=== PATIENT | male | born 1940 | race Caucasian/White ===

== ENCOUNTER → 2017-01-29 | Outpatient (CLI) | payer OTHER | LOC: FIMAGING 17:28 | PROVIDERS: ATTEND Physical Medicine & Rehabilitation | DX: S32.010A Wedge compression fracture of first lumbar vertebra, initial encounter for closed fracture (principal) ==

== ENCOUNTER 2017-07-04 09:15 | Emergency (ER) | payer OTHER ==
[2017-07-04 09:23] VITALS: O2SAT 93
--- NOTE | 2017-07-04 09:50 | EDPHY ---
General Narrative: CHIEF COMPLAINT: Cough for 2 weeks HISTORY OF PRESENT ILLNESS: Patient complains of cough of 15 days duration and subsequently and itis.. Gradual onset. Constant duration. Mostly nonproductive. Very rarely productive. No chest pain at any time during this. No shortness of breath. He does feel very tired and fatigued from this. No neck pain or stiffness. No headache. No abdominal pain. No nausea or vomiting. No body aches. Saw his primary care physician 10 days ago. They recommended steam bath and supportive care. No antibiotics ordered. No x-ray ordered. He has been doing over-the- counter cough medicine with minimal improvement. Also complains of laryngitis of similar duration. No pain with this. No difficulty speaking or swallowing. No modifying factors. No recent travel, trauma or surgery. No history of venous thrombolic event No other associated complaints or modifying factors. REVIEW OF SYSTEMS: Ten systems reviewed and are negative unless otherwise noted in the HPI PCP: Dr. Cowart SPECIALISTS: None PAST MEDICAL HISTORY: Insulin-dependent diabetic, hypertension, dyslipidemia PAST SURGICAL HISTORY: None SOCIAL HISTORY: Occasional pipe smoker. No alcohol use. No drug use. Retired FAMILY HISTORY: Noncontributory EXAMINATION General Appearance: Alert, no distress Head: normocephalic, atraumatic Eyes: Pupils equal and round, no conjunctival pallor or injection ENT, Mouth: Mucous membranes moist. Airway patent. Minimal erythema. No asymmetry of the pharynx. Neck: Normal inspection, supple, non-tender Respiratory: Mild rhonchi in the right upper lobe. No wheezing. No crackles. No diminishment. Cardiovascular: Regular rate and rhythm. No murmur Gastrointestinal: Abdomen is soft and nontender Back: non-tender, no bony abnormalities Neurological: A&O, nonfocal, normal gait Skin: Warm and dry, no rash no petechiae or purpura Extremities: Nontender, no pedal edema Psychiatric: Mood and affect normal DIFFERENTIAL DIAGNOSES: Including but not limited to viral bronchitis, bacterial bronchitis, community- acquired pneumonia, pneumonitis, bronchiectasis, upper respiratory infection, influenza MDM: 9:49 a.m. Cough and congestion for 15 days. Possible right-sided upper lobe pneumonia versus bronchitis are suspected. Vital signs were well within normal limits. He is in no acute distress. He is an insulin-dependent diabetic, thus I will obtain a fingerstick glucose. Flu test ordered. Strep test ordered. Chest x- ray ordered. 10:10 a.m. Blood glucose 171. Remainder of the i-STAT values are normal. 10:40 a.m. Chest x-ray as read by me, without the aid of the radiologist, reveals some hilar fullness with no definite evidence of pneumonia. Interpretation is pending. He is in no acute distress. Oxygenation on room air currently 90%. 11:15 a.m. Patient re-evaluated. He has finished his DuoNeb treatment. He is feeling significantly better at this time. No chest pain. Oxygenation is 97% on room air. Plan for discharge home with antibiotic treatment and albuterol inhaler prescription. I discussed ED precautions with the patient. I would like him to contact his primary care physician office to be seen early next week. He is comfortable with this plan. He is discharged home stable condition - Diagnostics Imaging Results: Imaging Impressions Chest X-Ray 07/04/17 09:48 Impression: Airways disease. - History Smoking Status: Never smoked - Objective Vital Signs: Initial Vital Signs Temperature (C) 97.3 F 07/04/17 09:20 Heart Rate 73 07/04/17 09:20 Respiratory Rate 18 07/04/17 09:20 Blood Pressure 151/66 H 07/04/17 09:20 O2 Sat (%) 93 07/04/17 09:20 O2 Delivery Mode Room Air Allergies/Adverse Reactions: Penicillins Allergy (Verified 07/04/17 09:18) Home Medications: Medication Instructions Recorded Albuterol [Proventil Inhaler HFA 1 - 2 puffs IH Q4H PRN #1 mdi 07/04/17 (*)] Azithromycin [Zithromax] 250 mg PO DAILY #6 tab 07/04/17 BENAZEPRIL HCL 07/04/17 Benzonatate [Tessalon Pearles (RX)] 100 mg PO Q8 PRN #15 cap 07/04/17 Januvia 100 MG (*) 07/04/17 Lantus Solostar 07/04/17 Metformin HCl 07/04/17 SIMVASTATIN 07/04/17 Vitamins A-D-E Tablet 07/04/17 Laboratory Results: 07/04/17 07/04/17 07/04/17 Unknown 09:49 09:40 POC Hgb 13.9 gm/dL gm/dL (13.7-17.5) POC Hct 41 % % (40-51) POC Sodium 139 mEq/L mEq/L (134-144) POC Potassium 3.8 mEq/L mEq/L (3.3-5.0) POC Chloride 104 mEq/L mEq/L (97-110) POC BUN 11 mg/dL mg/dL (7-23) POC Creatinine 1.1 mg/dL mg/dL (0.7-1.3) POC Glucose 171 mg/dL H mg/dL (70-100) Nasal Influenza A PCR NEGATIVE FOR FLU A (NEGATIVE) Nasal Influenza B PCR NEGATIVE FOR FLU B (NEGATIVE) Group A Strep Screen NEGATIVE (NEGATIVE) Group A Strep DNA NEGATIVE (NEGATIVE) Medications Given: Discontinued Medications Albuterol/Ipratropium (Duoneb) 3 ml IH EDNOW ONE Stop: 07/04/17 10:45 Last Admin: 07/04/17 10:47 Dose: 3 ml Point of Care Test Results: 07/04/17 09:49 POC Sodium 139 POC Potassium 3.8 POC Chloride 104 POC BUN 11 POC Creatinine 1.1 POC Glucose 171 H Departure - Departure Disposition: Home, Routine, Self-Care Clinical Impression: Acute bronchitis Qualifiers: Bronchitis organism: unspecified organism Qualified Code(s): J20.9 - Acute bronchitis, unspecified Condition: Good Instructions: Acute Bronchitis (ED) Additional Instructions: 1. Prescriptions as discussed to completion 2. Contact primary care physician for follow-up 3. ED precautions for any worsening cough, chest pain, shortness of breath or fever Referrals: Apurva Cowart MD [Primary Care Provider] - As per Instructions Prescriptions: Albuterol [Proventil Inhaler HFA (*)] 1 - 2 puffs IH Q4H PRN #1 mdi PRN Reason: Short Of Breath/Dyspnea Azithromycin [Zithromax] 250 mg PO DAILY #6 tab Benzonatate [Tessalon Pearles (RX)] 100 mg PO Q8 PRN #15 cap PRN Reason: Cough, Mild
[2017-07-04 10:24] LABS: STREP SCREEN RAPID NEGATIVE (NEGATIVE)
[2017-07-04] MEDS ORDERED: IPRATROPIUM/ALBUTEROL 3 ML DEYVIAL IH ONE (10:44)
[2017-07-04 11:20] VITALS: BP 156/88; PULSE 83; RESP 16; TEMP 97.5
== END 2017-07-04 11:30 | disposition home or self-care (01) ==
DX: J20.9 Acute bronchitis, unspecified (principal); I10 Essential (primary) hypertension; E11.9 Type 2 diabetes mellitus without complications; Z79.4 Long term (current) use of insulin; Z79.84 Long term (current) use of oral hypoglycemic drugs
CPT/HCPCS: 82947-QW